=== PATIENT | male | born 1940 | race Caucasian/White ===

== ENCOUNTER 2017-07-11 05:40 | Day surgery (SDC) | payer MEDICARE, BC ==
[2017-07-09 11:17] LABS: BASOPHILS # (AUTO) 0.04 x10^3/uL (0-0.1); BASOPHILS % (AUTO) 1 % (0-1); EOSINOPHILS # (AUTO) 0.18 x10^3/uL (0-0.4); EOSINOPHILS % (AUTO) 5 % (1-7); LYMPHOCYTES % (AUTO) 28 % (22-44); MD NO; MEAN CORPUSCULAR HEMOGLOBIN 32.7 pg (27.5-34.5); MEAN CORPUSCULAR HGB CONC 34.7 g/dL (33.2-36.2); MEAN CORPUSCULAR VOLUME 94.3 fL (81-97); MEAN PLATELET VOLUME 9.4 fL (7.4-10.4); MONOCYTES % (AUTO) 14 % (2-9); NEUTROPHILS # (AUTO) 1.89 x10^3/uL (1.8-6.8); NEUTROPHILS % (AUTO) 53 % (42-75); PLATELET COUNT 212 x10^3/uL (130-400); RED BLOOD COUNT 4.57 x10^6/uL (4.38-5.82); RED CELL DISTRIBUTION WIDTH 13.1 % (9.4-14.8)
[2017-07-09 11:22] LABS: MICROSCOPIC INDICATED
[2017-07-09 11:29] LABS: ALANINE AMINOTRANSFERASE 22 U/L (12-78); ALBUMIN 3.7 g/dL (3.4-5.0); ANION GAP 8 mmol/L (5-15); CALCIUM 8.6 mg/dL (8.5-10.1); CHLORIDE 105 mmol/L (98-107)
[2017-07-09 11:32] LABS: ALKALINE PHOSPHATASE 73 U/L (45-117); BILIRUBIN,TOTAL 0.8 mg/dL (0.2-1.0); CREATININE 1.04 mg/dL (0.7-1.3); TOTAL PROTEIN 7.3 g/dL (6.4-8.2)
[~2017-07-11] VITALS: Ht 170.2 cm; Wt 82.0 kg
[~2017-07-11 05:40] MED LIST: ALBU8.5H8 INH; ASCO500T8 PO; ASPI-621 PO; CHOL10003 PO; FISH OIL; FLUT15.815 NAS; LISI40TA PO; MULT-516 PO; ROSU5TAB PO; TURMERIC
[2017-07-11] MEDS ORDERED: LACTATED RINGERS 1,000 ML IV SCH (06:09)
[2017-07-11 06:25] VITALS: BP 163/90
[2017-07-11] MEDS ORDERED: PROPOFOL 10 MG/ML, 20ML ONE (06:49)
[2017-07-11] MEDS ORDERED: FENTANYL PF 250 MCG/5ML ONE (06:49)
[2017-07-11] MEDS ORDERED: ROCURONIUM 10 MG/ML,10ML ONE (06:49)
[2017-07-11] MEDS ORDERED: ONDANSETRON 2MG/ML, 2ML IVPush PRN (07:30)
[2017-07-11] MEDS ORDERED: PROMETHAZINE 12.5 MG SUPP PR PRN (07:30)
[2017-07-11] MEDS ORDERED: ALBUTEROL SULFATE 2.5 MG/3 ML NPPB PRN (07:30)
[2017-07-11] MEDS ORDERED: LABETALOL 5MG/ML, 20ML IV PRN (07:30)
[2017-07-11] MEDS ORDERED: HYDROmorphone 1 MG/ML, 1ML IV PRN (07:30)
[2017-07-11] MEDS ORDERED: hydrALAzine 20 MG/ML, 1ML IV PRN (07:30)
[2017-07-11] MEDS ORDERED: OXYcodone 5 MG/5 ML ORAL.SOL UDC PO PRN (07:30)
[2017-07-11] MEDS ORDERED: ONDANSETRON 2MG/ML, 2ML ONE (07:36)
[2017-07-11] MEDS ORDERED: DEXAMETHASONE 4 MG/ML, 1ML ONE (07:39)
[2017-07-11] MEDS ORDERED: MITOMYCIN 40 MG, WATER FOR INJECTION,STERILE 40 ML in SYRINGE 1 EA INTVESIC ONE (08:00)
[2017-07-11] MEDS ORDERED: LABETALOL 5MG/ML, 20ML ONE (08:15)
[2017-07-11] MEDS ORDERED: ACETAMINOPHEN 650 MG/20.3 ML UDC ONE (08:29)
[2017-07-11] MEDS ORDERED: FENTANYL PF 100 MCG/2ML ONE ×2 (08:29→08:53)
[2017-07-11] MEDS ORDERED: ONDANSETRON 2MG/ML, 2ML IV PRN (08:30)
[2017-07-11] MEDS ORDERED: OXYcodone 5 MG/5 ML ORAL.SOL UDC ONE (08:30)
[2017-07-11] MEDS ORDERED: OPIUM/BELLADONNA SUPP.RECT 16.2-60 MG ONE (08:30)
[2017-07-11] MEDS: FENTANYL PF 100 MCG/2ML IV PRN ×3 (08:33→09:21)
[2017-07-11] MEDS ORDERED: OPIUM/BELLADONNA SUPP.RECT 16.2-60 MG PR STA (08:37)
[2017-07-11] MEDS ORDERED: hydrALAzine 20 MG/ML, 1ML ONE (08:53)
[2017-07-11] MEDS ORDERED: ACETAMINOPHEN 650 MG/20.3 ML UDC PO PRN (09:00)
[2017-07-11] MEDS ORDERED: PHENAZOPYRIDINE 200 MG TABLET PO PRN (16:30)
[2017-07-11] MEDS ORDERED: PHENAZOPYRIDINE 200 MG TABLET ONE (16:31)
== END 2017-07-11 17:49 ==
LOC: OUT 05:40
PROVIDERS: ATTEND Urology
DX: C67.9 Malignant neoplasm of bladder, unspecified (principal); I10 Essential (primary) hypertension; E78.00 Pure hypercholesterolemia, unspecified; Z95.1 Presence of aortocoronary bypass graft; Z72.89 Other problems related to lifestyle; Z88.1 Allergy status to other antibiotic agents; Z98.890 Other specified postprocedural states
CPT/HCPCS: 36415; 51720; 52234; 71045; 80053; 81001; 85025; 87086; 88307; 93005; J0360; J1100; J2405; J2704; J3010; J7120; J9280

== ENCOUNTER 2018-06-02 11:34 | Day surgery (SDC) | payer MEDICARE, BC ==
[~2018-06-02] VITALS: Ht 170.2 cm; Wt 84.2 kg
[~2018-06-02 11:34] MED LIST changes: -ASPI-621 PO; +ASPI81TA45 PO
[2018-06-02] MEDS ORDERED: LACTATED RINGERS 1,000 ML IV SCH ×2 (11:55→11:59)
[2018-06-02] MEDS ORDERED: FENTANYL PF 250 MCG/5ML ONE (11:59)
[2018-06-02] MEDS ORDERED: PROPOFOL 10 MG/ML, 20ML ONE (11:59)
[2018-06-02] MEDS ORDERED: CEFAZOLIN 1,000 MG ONE ×2 (12:00)
[2018-06-02] MEDS ORDERED: PLEASE ENTER HEIGHT AND WEIGHT MC SCH (12:00)
[2018-06-02 12:04] VITALS: BP 160/89
[2018-06-02] MEDS ORDERED: CIPROFLOXACIN/PMX 400MG/200ML 200 ML ONE (12:26)
[2018-06-02] MEDS ORDERED: ONDANSETRON 2MG/ML, 2ML IV PRN (12:30)
[2018-06-02] MEDS ORDERED: hydrALAzine 20 MG/ML, 1ML IV PRN (12:30)
[2018-06-02] MEDS ORDERED: OXYcodone 5 MG/5 ML ORAL.SOL UDC PO PRN (12:30)
[2018-06-02] MEDS ORDERED: PROMETHAZINE 12.5 MG SUPP PR PRN (12:30)
[2018-06-02] MEDS ORDERED: PROMETHAZINE 25 MG/ML, 1ML IV PRN (12:30)
[2018-06-02] MEDS ORDERED: FENTANYL PF 100 MCG/2ML IV PRN (12:30)
[2018-06-02] MEDS ORDERED: ALBUTEROL SULFATE 2.5 MG/3 ML NPPB PRN (12:30)
[2018-06-02] MEDS ORDERED: HYDROmorphone 2 MG/ML, 1ML IVPush PRN (12:30)
[2018-06-02] MEDS ORDERED: PROMETHAZINE 25 MG/ML, 1ML IM PRN ×2 (12:30)
[2018-06-02] MEDS ORDERED: MEPERIDINE/PF 25MG/0.5ML IVPush PRN (12:30)
[2018-06-02] MEDS ORDERED: ACETAMINOPHEN 325 MG TABLET PO PRN (12:30)
[2018-06-02] MEDS ORDERED: LABETALOL 5MG/ML, 20ML IV PRN (12:30)
[2018-06-02] MEDS ORDERED: MORPHINE SULFATE 4 MG/ML, 1ML IVPush PRN (12:30)
[2018-06-02] MEDS ORDERED: PROMETHAZINE 25 MG SUPP PR PRN (12:30)
[2018-06-02] MEDS ORDERED: PHENAZOPYRIDINE 200 MG TABLET ONE (12:56)
[2018-06-02] MEDS ORDERED: ACETAMINOPHEN 325 MG TABLET ONE (12:56)
[2018-06-02] MEDS ORDERED: OXYcodone/APAP 5/325MG TABLET PO PRN (13:00)
[2018-06-02] MEDS ORDERED: PHENAZOPYRIDINE 200 MG TABLET PO ONE (13:30)
== END 2018-06-02 15:45 | disposition home or self-care (01) ==
LOC: OUT 11:34
PROVIDERS: ATTEND Urology
DX: C67.9 Malignant neoplasm of bladder, unspecified (principal); I10 Essential (primary) hypertension; J45.909 Unspecified asthma, uncomplicated; Z88.1 Allergy status to other antibiotic agents; Z79.899 Other long term (current) drug therapy
CPT/HCPCS: 52234; 88305; 93005; J0744; J2704; J3010; J7120; J0690

== ENCOUNTER 2019-07-13 05:58 | Emergency (ER) | payer MEDICARE, BC ==
[~2019-07-13] VITALS: Ht 170.2 cm; Wt 97.2 kg
[2019-07-13] MEDS ORDERED: ACETAMINOPHEN 500 MG TABLET PO ONE (06:30)
[2019-07-13] MEDS ORDERED: PROCHLORPERAZINE 5 MG/ML, 2ML IV ONE (06:30)
[2019-07-13 06:44] LABS: MEAN CORPUSCULAR HEMOGLOBIN 32.3 pg (27.5-34.5); MEAN CORPUSCULAR HGB CONC 33.8 g/dL (33.2-36.2); MEAN CORPUSCULAR VOLUME 95.7 fL (81-97); MEAN PLATELET VOLUME 9.1 fL (7.4-10.4); PLATELET COUNT 181 x10^3/uL (130-400); RED BLOOD COUNT 4.09 x10^6/uL (4.38-5.82); RED CELL DISTRIBUTION WIDTH 13.6 % (9.4-14.8)
[2019-07-13 06:48] LABS: ALANINE AMINOTRANSFERASE 24 U/L (12-78); ALBUMIN 3.4 g/dL (3.4-5.0); ANION GAP 7 mmol/L (5-15); CALCIUM 8.6 mg/dL (8.5-10.1); CHLORIDE 109 mmol/L (98-107); CREATININE 0.93 mg/dL (0.7-1.3)
[2019-07-13 06:51] LABS: ALKALINE PHOSPHATASE 72 U/L (45-117); BILIRUBIN,TOTAL 0.3 mg/dL (0.2-1.0); TOTAL PROTEIN 7.1 g/dL (6.4-8.2)
[2019-07-13] MEDS ORDERED: GADOTERATE 10 MMOL/20 ML SYR ONE (06:54)
--- NOTE | 2019-07-13 07:00 | NUR ---
REPORT OF PT TO [place]. ALL QUESTIONS ANSWERED.
--- NOTE | 2019-07-13 07:02 | NUR ---
PT TO IMAGING AT THIS TIME VIA [employer].
[2019-07-13 07:10] LABS: BASOPHILS # (AUTO) 0.06 x10^3/uL (0-0.1); BASOPHILS % (AUTO) 2 % (0-1); EOSINOPHILS # (AUTO) 0.22 x10^3/uL (0-0.4); EOSINOPHILS % (AUTO) 8 % (1-7); LYMPHOCYTES # (AUTO) 0.78 x10^3/uL (1-3.4); LYMPHOCYTES % (AUTO) 29 % (22-44); MD SCAN; MONOCYTES # (AUTO) 0.42 x10^3/uL (0.2-0.8); MONOCYTES % (AUTO) 16 % (2-9); NEUTROPHILS # (AUTO) 1.21 x10^3/uL (1.8-6.8); NEUTROPHILS % (AUTO) 45 % (42-75)
[2019-07-13] MEDS ORDERED: PROCHLORPERAZINE 5 MG/ML, 2ML ONE (07:54)
[2019-07-13] MEDS ORDERED: KETOROLAC 30 MG/1 ML ONE (07:54)
[2019-07-13] MEDS ORDERED: ACETAMINOPHEN 500 MG TABLET ONE (07:54)
[2019-07-13 07:59] VITALS: BP 167/93
[2019-07-13] MEDS ORDERED: KETOROLAC 30 MG/1 ML IVPush ONE (08:00)
[2019-07-13] MEDS ORDERED: GLUC15006 PO (08:10)
== END 2019-07-13 09:01 | disposition home or self-care (01) ==
LOC: ED 08:55
DX: G43.909 Migraine, unspecified, not intractable, without status migrainosus (principal); L98.9 Disorder of the skin and subcutaneous tissue, unspecified; R00.1 Bradycardia, unspecified; Z85.51 Personal history of malignant neoplasm of bladder
CPT/HCPCS: 36415; 70450; 70553; 80053; 85025; 93005; 96374; 96375; 99285; A9575; J0780; J1885